=== PATIENT | male | born 2005 | race Caucasian/White ===

== ENCOUNTER 2024-03-04 20:31 | Emergency (ER) | payer SELFPAY ==
[2024-03-04] MEDS: Ketorolac 60 MG/2 ML SDV IM ONE (21:26)
== END 2024-03-04 22:48 | disposition home or self-care (01) ==
LOC: JD.ED 20:31
DX: M54.50 Low back pain, unspecified (principal); Z88.0 Allergy status to penicillin; Z79.899 Other long term (current) drug therapy
CPT/HCPCS: 96372; 99283; J1885

== ENCOUNTER 2025-06-21 08:44 | Emergency (ER) | payer BC ==
[2025-06-21] MEDS ORDERED: Sodium Chloride 0.9% 10 ML Syringe FLUSH PRN (09:31)
[2025-06-21 09:54] LABS: APPEARANCE,URINE CLEAR (Clear); GLUCOSE,URINE NEGATIVE (Negative); OCCULT BLOOD,URINE NEGATIVE (Negative)
[2025-06-21 10:07] LABS: BASOPHILS ABSOLUTE AUTO 0.0 K/mm3 (0.0-0.2); BASOPHILS PERCENT AUTO 0.8 % (0.0-1.0); EOSINOPHILS ABSOLUTE AUTO 0.2 K/mm3 (0.0-0.4); EOSINOPHILS PERCENT AUTO 3.4 % (0.0-6.0); IMMATURE GRAN ABSOLUTE AUTO 0.00 K/mm3 (0.00-0.05); IMMATURE GRAN PERCENT AUTO 0.0 % (0.0-0.4); LYMPHOCYTES ABSOLUTE AUTO 1.8 K/mm3 (1.0-4.8); LYMPHOCYTES PERCENT AUTO 36.1 % (24.0-44.0); MEAN PLATELET VOLUME 8.3 fl (9.4-12.4); MONOCYTES ABSOLUTE AUTO 0.7 K/mm3 (0.0-0.8); MONOCYTES PERCENT AUTO 14.6 % (0.0-8.0); NEUTROPHILS ABSOLUTE AUTO 2.2 K/mm3 (1.8-7.7); NEUTROPHILS PERCENT AUTO 45.1 % (41.0-71.0); NRBC ABSOLUTE 0.00 (0.00-0.02); NRBC PERCENT 0.0 % (0.0-0.2); RED BLOOD CELL COUNT 5.03 M/mm3 (4.52-5.90); WHITE BLOOD CELL COUNT,WBC 4.93 K/mm3 (3.9-11.3)
[2025-06-21 10:08] LABS: PLATELET COUNT,PLT 330 K/mm3 (150-400)
[2025-06-21 10:32] LABS: A/G RATIO 1.5 (1-2); ALANINE AMINOTRANSFERASE,ALT 20.0 U/L (16-63); ASPARTATE AMNIOTRANSFERASE,AST 17.0 U/L (15-37); BILIRUBIN TOTAL 0.3 mg/dL (0.2-1.0); BLOOD UREA NITROGEN,BUN 14.0 mg/dL (7-18); CARBON DIOXIDE,CO2 29.0 mEq/L (21-32); CHLORIDE,CL 104.0 mEq/L (98-107); CREATININE 1.0 mg/dL (0.7-1.3); EST CRCL DRUG DOSING (CG) 102.06 mL/min; ESTIMATED GFR 111.0 mL/min (>60); GLUCOSE RANDOM 83.0 mg/dL (70-99); POTASSIUM,K 3.9 mEq/L (3.5-5.1); PROTEIN TOTAL,TP 7.6 g/dl (6.4-8.2); SODIUM,NA 142.0 mEq/L (136-145)
[2025-06-21 10:53] LABS: CORONAVIRUS COVID-19 NAA NEGATIVE (NEGATIVE); INFLUENZA A NAA NEGATIVE (NEGATIVE); RESPIRATORY SYNCYTIAL VIR NAA NEGATIVE (NEGATIVE)
== END 2025-06-21 12:39 | disposition home or self-care (01) ==
LOC: JD.ED 08:44
DX: R09.81 Nasal congestion (principal); R51.9 Headache, unspecified; M79.10 Myalgia, unspecified site; Z88.0 Allergy status to penicillin
CPT/HCPCS: 36415; 71045; 80053; 81003; 82550; 85025; 87637; 96360; 99284; A9270; J7030; 99283